=== PATIENT | female | born 1990 | race Caucasian/White ===

== ENCOUNTER 2018-08-31 05:15 | Inpatient (IN) | payer MEDICAID ==
[~2018-08-31] VITALS: Ht 160 cm; Wt 105.3 kg
[2018-08-31 05:36] VITALS: Ht 160 cm; Wt 105.3 kg
[2018-08-31] MEDS ORDERED: CARBOPROST 250 MCG INJ IM PRN (06:00)
[2018-08-31] MEDS ORDERED: CEFAZOLIN 2 GM/50 ML (PMX) 50 ML IVPB SCH (06:00)
[2018-08-31] MEDS ORDERED: METHYLERGONOVINE 0.2 MG INJ IM PRN (06:00)
[2018-08-31] MEDS ORDERED: MISOPROSTOL 200 MCG TAB PR PRN ×2 (06:00→08:00)
[2018-08-31] MEDS ORDERED: OXYTOCIN 30 UNITS/LR 500 ML IV PRN (06:00)
--- NOTE | 2018-08-31 07:32 | PREAC ---
Date/Time of Note Date/Time of Note DATE: 08/31/18 TIME: 07:31 Anesthesia Eval and Record Evaluation Time Pre-Procedure Interview DATE: 08/31/18 TIME: 07:31 Age 28 Sex female NPO: 8 hrs Preoperative diagnosis previous c section Planned procedure repeat c section with BTL Past Medical History Past Medical History: None Surgery & Anesthesia Issues No known issue Meds Anticoagulation: No Beta Tena within 24 hr: No Reason Beta Tena not given: Pt. not on B-Tena Current Medications Lactated Ringer's 1,000 ml @ 125 mls/hr Q8H IV ; Start 08/31/18 at 05:37 Cefazolin Sodium/ Dextrose 50 ml @ 100 mls/hr ONCE IVPB ; Start 08/31/18 at 06:00 Oxytocin/Lactated Ringer's 500 ml @ 125 mls/hr POST IV ; Start 08/31/18 at 06:00 Oxytocin/Lactated Ringer's 500 ml @ 0 mls/hr ONCE PRN IV .VAGINAL BLEEDING; Start 08/31/18 at 06:00 Methylergonovine Maleate (Methergine) 0.2 mg ONCE PRN IM .VAGINAL BLEEDING; Start 08/31/18 at 06:00 Carboprost Tromethamine (Hemabate) 250 mcg ONCE PRN IM .VAGINAL BLEEDING; Start 08/31/18 at 06:00 Misoprostol (Cytotec) 1,000 mcg ONCE PRN LA .VAGINAL BLEEDING; Start 08/31/18 at 06:00 Meds reviewed: Yes Allergies Coded Allergies: No Known Allergy (Unverified , 08/31/18) Allergies Reviewed: Yes Labs/Studies Labs Reviewed: Reviewed by anesthesiologist Result Diagram: 08/31/18 0550 Laboratory Tests 08/31/18 05:50 test: N/A Pre-procedure Exam Airway: Adequate mouth opening, Adequate thyromental dist Mallampati: Mallampati III Teeth: Normal Lung: Normal Heart: Normal ASA Physical Status ASA physical status: 2 Emergency: None Pre-operative Attestations Prior to commencing anesthesia and surgery, the patient was re-evaluated, there was verification of: *The patient's identity *The results of appropriate recent lab work and preoperative vital signs *The above evaluation not changing prior to induction *Anesthetic plan, risk benefits, alternative and complications discussed with patient/family; questions answered; patient/family understands, accepts and wishes to proceed. MOE NUNES DO Aug 31, 2018 07:32
[2018-08-31] MEDS ORDERED: LACTATED RINGER'S 1,000 ML IV SCH (07:50)
--- NOTE | 2018-08-31 07:50 | HP ---
Date/Time of Note Date/Time of Note DATE: 08/31/18 TIME: 07:48 OB - History Hx of Present Free Text/Dictation 28 O with IUP at 39 weeks with history of previous delivery, who desires to have repeat delivery and Permanent sterilization. I discussed with the patient the risks, benefits, indications, and alternatives of procedure including but not limited to risks of infection, bleeding, damage to other organs, bowel, bladder, hernia formation, scar formation, possibility of blood transfusion, possible need for emergency hysterectomy, as well as the fact that tubal ligation may fail and there is 1 to 2% risk of failure over lifetime of tubal ligations and the fact that tubal ligation is permanent and irreversible. She was allowed to ask questions. All her questions were answere d. Informed consent has been obtained. Care: Good Care Ultrasounds: Normal mid trimester US Obstetrical Complications: None Medical Complications: None Past Family/Social History * Past Medical, Surgical, Family and Obstetric Histories reviewed from chart. OB Admission Exam Physical Exam HEENT: WNL Heart: Rhythm Normal Lungs: Clear, Equal Abdomen: WNL Extremities: Normal Reflexes: Normal Last 72 hours Lab Results CBC & BMP 08/31/18 05:50 OB Assessment/Plan Other Assessment: IUP 39 weeks h/o previous Desires repeat Desires permanent sterilization Other plan: Repeat Delivery Tubal ligation may be done by either salpingectomy or modified rosemary BTL JARRET BAGLEY MD Aug 31, 2018 07:50
[2018-08-31] MEDS ORDERED: morphine SULFATE/PF (10 MG/10 ML) INJ ONE (07:55)
[2018-08-31] MEDS ORDERED: FENTAnyl 50 MCG/ML VIAL ONE (07:55)
[2018-08-31] MEDS ORDERED: DIPHENHYDRAMINE 50 MG INJ IV PRN (08:00)
[2018-08-31] MEDS ORDERED: NALOXONE (0.4 MG/ML) INJ IV PRN (08:00)
[2018-08-31] MEDS ORDERED: NA PHOSPHATE/BIPHOS 133 ML ENEMA PR PRN (08:00)
[2018-08-31] MEDS ORDERED: OXYCODONE/ACETAMINOPHEN (5/325) TAB PO PRN ×2 (08:00)
[2018-08-31] MEDS ORDERED: ONDANSETRON 4 MG INJ IV PRN (08:00)
[2018-08-31] MEDS ORDERED: HYDROmorphONE 0.5 MG/0.5 ML SYG IV PRN ×2 (08:00)
[2018-08-31] MEDS ORDERED: ZOLPIDEM 5 MG TAB PO PRN (08:00)
[2018-08-31] MEDS ORDERED: KETOROLAC 30 MG INJ IV PRN (08:00)
[2018-08-31] MEDS ORDERED: LANOLIN HPA 1 PKT TOP PRN (08:00)
[2018-08-31] MEDS ORDERED: FAMOTIDINE 20 MG INJ ONE (08:13)
[2018-08-31] MEDS ORDERED: DEXAMETHASONE 4 MG/ML 1 ML INJ ONE (08:13)
[2018-08-31] MEDS: SENNA/DOCUSATE NA (8.6MG/50MG) TAB PO SCH ×2 (09:00→21:13)
--- NOTE | 2018-08-31 09:08 | OPR ---
Date/Time of Note Date/Time of Note DATE: 08/31/18 TIME: 09:04 Operative Report Procedure Date: Aug 31, 2018 Preoperative Diagnosis IUP at 39 weeks H/o Delivery Desires repeat delivery Desires permanent sterilization Postoperative Diagnosis same Operation/Procedure Performed Repeat delivery Bilateral distal salpingectomies Surgeon Nic Foss MD Outsole S[employer]er Dr. [place] Anesthesia Type: spinal Estimated Blood Loss: other (700 ml) Transfusion none Specimen Distal segments of tubes Grafts/Implants none Tubes/Drains Alfredo Complications none Pt Condition Post Procedure: stable Disposition: PACU Procedure Description The risks, benefits, indications, alternatives of procedure including, but not limited to risk of infection, bleeding, damage to other organs, bowel, bladder, hernia formation, scar formation, possibility of blood transfusions, the risks of tubal ligation such as failure and future pregnancies were discussed with the patient. The fact that BTL is permanent and irreversible also discussed with patient. She was allowed to ask questions. All her questions were answered. Informed consent was obtained. DESCRIPTION OF PROCEDURE: She was taken to the operating room. Spinal anesthesia was induced. She was prepped and draped in the usual sterile fashion. Surgical time out one. Anesthesia was tested to be adequate. With permission f rom anesthesiologist, a knife was used to make a Pfannenstiel skin incision. The incision was taken down in layers. The fascia was cut, undermined and from the underlying muscle using sharp and blunt dissection. All the bleeders were cauterized. Peritoneum was entered bluntly. A low transverse incision was developed over the uterus. Amniotic fluid was clear and adequate. A viable female in vertex presentation was delivered without any difficulty. The cord was clamped and cut, handed to awaiting team. Placenta was then delivered. Uterus was exteriorized, wrapped around a moist lap. Inside uterus was cleaned using a dry lap. All residual membranes were removed. The uterine incision was then closed using #1 Monocryl in 2 layers. A 5 cm distal end of the right tube was ligated 3 times using 0 plain tie and the ligated portion was cut, sent to pathology. Same procedure was done on the contralateral side. The uterus was inserted back inside the abdominal cavity. Irrigation was done carefully. Careful evaluation of the uterine incision revealed no further bleeding. The tubal ligation sites were evaluated carefully. There was no bleeding. The peritoneum and rectus muscles and fascia were evaluated. All bleeders cauterized. Peritoneum was closed using 2-0 Monocryl. At this time, the count was correct. Rectus muscle was reapproximated using 2-0 Monocryl. Rectus fascia was closed using #1 Vicryl. Subcutaneous tissue was cleaned and irrigated. All bleeders cauterized and the skin closed using Insorb. All counts correct. NIC FOSS MD Aug 31, 2018 09:08
--- NOTE | 2018-08-31 09:13 | PAC ---
Date/Time of Note Date/Time of Note DATE: 08/31/18 TIME: 09:13 Post-Anesthesia Notes Post-Anesthesia Note Last documented vital signs 105/60 77 100% Activity: WNL Respiratory function: WNL Cardiovascular function: WNL Mental status: Baseline Pain reasonably controlled: Yes Hydration appropriate: Yes Nausea/Vomiting absent: Yes MOE NUNES DO Aug 31, 2018 09:13
[2018-08-31] MEDS: OXYTOCIN 30 UNITS/LR 500 ML IV SCH ×2 (09:43→11:30)
[2018-08-31 10:30] VITALS: BP 111/69; PULSE 94; RESP 20
[2018-08-31] MEDS: IBUPROFEN 600 MG TAB PO SCH ×2 (12:00→18:00)
[2018-08-31] MEDS: LACTATED RINGER'S 1,000 ML IV SCH ×2 (13:37→16:05)
[2018-08-31 16:00] VITALS: BP 114/59; PULSE 66; RESP 18
[2018-08-31 19:35] VITALS: BP 107/58; PULSE 69; RESP 17
[2018-09-01 00:30] VITALS: BP 112/60; PULSE 70; RESP 17
[2018-09-01] MEDS: LACTATED RINGER'S 1,000 ML IV SCH ×4 (01:35→21:37)
[2018-09-01 03:54] VITALS: BP 113/55; PULSE 80; RESP 17
[2018-09-01] MEDS: IBUPROFEN 600 MG TAB PO SCH ×5 (05:40→23:56)
[2018-09-01 08:00] VITALS: BP 103/54; PULSE 71; RESP 18
[2018-09-01] MEDS: SENNA/DOCUSATE NA (8.6MG/50MG) TAB PO SCH ×2 (11:42→23:56)
[2018-09-01 15:17] VITALS: BP 99/57; PULSE 18; RESP 18
[2018-09-01 20:00] VITALS: BP 113/61; PULSE 75; RESP 18
--- NOTE | 2018-09-01 22:43 | QN ---
Documentation Comment passing flatus , no b.m yet tolerating diet well urination ok Vss afebrile abdomen soft wound dry lochia min calf neg for tenderness A S/P RC/S and BTL #1 P as ordered KASSANDRA GUDINO MD Sep 01, 2018 22:43
--- NOTE | 2018-09-02 00:08 | PN ---
Date/Time of Note Date/Time of Note DATE: 09/02/18 TIME: 00:05 OB Subjective Subjective Subjective Patient reports decreased vaginal bleeding. Breast-feeding. Denies any heada saloni, blurred vision, epigastric pain or right upper quadrant pain. Has not been out of the bed yet. Has not passed gas yet. Has not ambulated. Denies any dizziness, lightheadedness, shortness of breath or chest pain OB Objective Objective Objective Appearance: Alert and oriented x4 does not appear to be in any acute distress Abdomen: Soft, fundus palpable and nontender to center below the umbilicus incision/dressing, clean dry and intact Lungs: Clear to auscultation bilaterally CV: RRR Extremities: No calf tenderness, no click no edema no cord palpable VS - Last 72 Hours, by Label Date Temp Pulse Resp B/P (MAP) Pulse Ox O2 O2 Flow FiO2 Time Delivery Rate 09/01/18 98.7 18 18 99/57 (71) Room Air 15:17 09/01/18 99.3 71 18 103/54 Room Air 08:00 (70) 09/01/18 97.8 80 17 113/55 Room Air 03:54 (74) 09/01/18 97.8 70 17 112/60 97 Room Air 00:30 (77) 08/31/18 98.2 69 17 107/58 98 Room Air 19:35 (74) 08/31/18 98.6 66 18 114/59 97 Room Air 16:00 (77) 08/31/18 97.9 94 20 111/69 97 Room Air 10:30 (83) Laboratory Tests Test 09/01/18 04:42 09/01/18 07:11 White Blood Count 13.5 #H Red Blood Count 3.38 L Hemoglobin 9.7 L Hematocrit 28.8 L Mean Corpuscular Volume 85.2 Mean Corpuscular Hemoglobin 28.7 L Mean Corpuscular Hemoglobin Concent 33.7 Red Cell Distribution Width 13.2 Platelet Count 197 Mean Platelet Volume 10.0 Immature Granulocytes % 0.500 H Neutrophils % 74.3 Lymphocytes % 17.6 Monocytes % 7.0 Eosinophils % 0.3 Basophils % 0.3 Nucleated Red Blood Cells % 0.0 Immature Granulocytes # 0.070 H Neutrophils # 10.0 H Lymphocytes # 2.4 Monocytes # 0.9 Eosinophils # 0.0 Basophils # 0.0 Nucleated Red Blood Cells # 0.0 Lab Scanned Report REFERENCE LAB OB Assessment/Plan Other Assessment: Status post repeat section bilateral tubal sterilization Postoperative day #1 Anemia, postop, asymptomatic Routine postop care Ambulation after DC Alfredo Advance diet as tolerated Incentive spirometer Routine postop care Add iron been tolerated diet well with vitamins. KEYANNA TALLEY MD Sep 02, 2018 00:08
[2018-09-02 04:00] VITALS: BP 104/59; PULSE 69; RESP 17
[2018-09-02] MEDS: LACTATED RINGER'S 1,000 ML IV SCH (05:37)
[2018-09-02] MEDS: IBUPROFEN 600 MG TAB PO SCH ×3 (06:00→18:30)
[2018-09-02 08:00] VITALS: BP 121/59; PULSE 78; RESP 16
[2018-09-02] MEDS: SENNA/DOCUSATE NA (8.6MG/50MG) TAB PO SCH ×2 (10:21→21:11)
[2018-09-02 16:00] VITALS: BP 112/61; PULSE 62
[2018-09-02 20:00] VITALS: BP 115/79; PULSE 78; RESP 20
[2018-09-03] MEDS: IBUPROFEN 600 MG TAB PO SCH ×4 (00:53→17:35)
[2018-09-03 03:15] VITALS: BP 102/64; PULSE 74; RESP 20
[2018-09-03 08:40] VITALS: BP 108/65; PULSE 65; RESP 18
[2018-09-03] MEDS: SENNA/DOCUSATE NA (8.6MG/50MG) TAB PO SCH (08:46)
[2018-09-03] MEDS ORDERED: DIPHTH/TET/ACEL PERTUSS (ADULT) 0.5 ML VIAL IM* ONE (09:00)
[2018-09-03] MEDS ORDERED: MEASLES,MUMPS,RUBELLA VACCINE INJ SC* ONE (09:00)
[2018-09-03 16:15] VITALS: BP 107/59; PULSE 58; RESP 18
--- NOTE | 2018-09-03 18:30 | DS ---
Date/Time of Note Date/Time of Note DATE: 09/03/18 TIME: 18:30 Obstetrical Discharge Record Final Diagnosis Final Diagnosis: Term delivered Other Final Diagnosis Subjective: Patient without complaints. Tolerating a regular diet. Breast- feeding. Lochia within normal limits. + ambulating. + Flatus. Objective: Vital signs within normal limits. H/H: 9.7/28.8 General: No apparent distress. Cardio: RRR Pulm:CTAB Abdomen: Fundus firm two fingerbreadths below umbillicus Incision: C/D/I Extremities nontender to palpation. Assessment/plan: 1. day #3. Patient presented at 39 weeks with previous section on 08/31/2018 for repeat section and permanent sterilization and underwent a section and bilateral tubal ligation. Hospital course was uncomplicated. 2. Anemia acute blood loss-ferrous sulfate. Disposition: Discharged home in stable condition with follow-up in 1 week Condition on Discharge Physical Assessment Patient Condition: Stable MILESTONE,ERASMO VARELA Sep 03, 2018 18:30
[2018-09-03] MEDS ORDERED: IBUP-1542 PO (18:31)
== END 2018-09-03 19:20 | disposition home or self-care (01) | DRG 785 ==
LOC: L-D 05:15 → MS1 12:10 → L-D 12:15 → MS1 12:17
PROVIDERS: ADMIT Specialist; ATTEND Specialist
PROC: 0UB70ZZ Excision of Bilateral Fallopian Tubes, Open Approach (ICD-10-PCS; 2018-08-31)
PROC: 10D00Z1 Extraction of Products of Conception, Low, Open Approach (ICD-10-PCS; principal; 2018-08-31 07:30)
DX: O34.211 Maternal care for low transverse scar from previous cesarean delivery (principal); Z3A.49 Greater than 42 weeks gestation of pregnancy; Z37.0 Single live birth; Z30.2 Encounter for sterilization
CPT/HCPCS: 85025; 85610; 85730; 86592; 86850; 86900; 86901; 87340; 88302; 90715; 99464; J0690; J1100; J1885; J2274; J2405; J2590; J3010; J7120